=== PATIENT | male | born 1960 | race Caucasian/White ===

== ENCOUNTER 2016-05-26 09:00 | Emergency (ER) ==
[2016-05-26] MEDS ORDERED: NORCO-5 PO ONE (10:45)
--- NOTE | 2016-05-26 10:47 | PROVIDER DOCUMENTATION ---
HPI-Rash/Wound/ReCheck <Kena Ruiz - Last Filed: 05/26/16 10:45> - General Source: patient - History of Present Illness-Dermatology Location: reports: hands (R 2nd digit) Quality: reports: painful Severity: reports: mild Onset/Duration: reports: unsure Timing: reports: still present Context/Associated Symptoms: reports: other (paronychia to R 2nd digit). denies : insect bite/sting, tick bite, spider bite, unknown bite/sting, abscess, laceration, abrasion, bruising/hematoma, incised wound, stab wound, burn, blisters, change in skin texture, edema, fever, flushing, headache, hives, jaundice, lesion, malaise, nasal congestion, numbness, pallor, paresthesia, petechiae, rash, sore throat, swelling/mass/lumps, tingling, tender area Identifiable cause?: No Exposure: reports: unknown cause Locality of Occurance: Home Similar Symptoms Previously?: Yes Recently seen or treated by another doctor?: No <Lia Kirk - Last Filed: 05/26/16 10:55> - General Chief Complaint: Extremity Pain Stated Complaint: FINGER SWOLLEN Time Seen by Provider: 05/26/16 10:40 Allergies/Adverse Reactions: Allergies Allergy/AdvReac Type Severity Reaction Status Date / Time No Known Allergies Allergy Verified 04/29/16 09:42 Home Medications: Home Medication List Medication Instructions Recorded Confirmed Last Taken Type Amlodipine [Norvasc] 10 mg PO DAILY 04/29/16 04/29/16 Unknown History Hydrocodone/Acetaminophen [Lewis 1 each PO Q4-6H PRN PRN #20 tablet 04/29/16 Unknown Rx 10-325 Tablet] Lisinopril 20 mg PO DAILY 04/29/16 04/29/16 Unknown History Methocarbamol [Robaxin-750] 1,500 mg PO Q6-8H PRN PRN #40 04/29/16 Unknown Rx tablet Metoprolol [Lopressor] 50 mg PO DAILY 04/29/16 04/29/16 Unknown History Prednisone 20 mg PO DAILY #12 tablet 04/29/16 Unknown Rx Acetaminophen with Codeine 1 each PO Q4H PRN PRN #7 tablet 05/26/16 Unknown Rx [Tylenol with Codeine #3] Amoxicillin [Amoxil] 500 mg PO BID #20 capsule 05/26/16 Unknown Rx - History of Present Illness-Dermatology Nature of Presenting Problem: Pt is 55 y/o M presents to the ED with R 2nd digit pain. Pt states unsure of onset of pain. Pt states he does bite his nails. Pt denies injury to digit. ( Lia Kirk) Review of Systems - Adult - REVIEW OF SYSTEMS - ADULT Constitutional: reports: no symptoms reported Eyes: reports: no symptoms reported Ears, Nose, Mouth & Throat: reports: no symptoms reported Cardiovascular: reports: no symptoms reported Respiratory: reports: no symptoms reported Gastrointestinal: reports: no symptoms reported Genitourinary: reports: no symptoms reported Musculoskeletal: reports: no symptoms reported Integumentary: reports: other (paronychia to R 2nd digit). denies: hives, rash Neurological: reports: no symptoms reported Psychiatric: reports: no symptoms reported Endocrine: reports: no symptoms reported Hematologic/Lymphatic: reports: no symptoms reported Allergic/Immunologic: reports: no symptoms reported All Other Systems: Reviewed and Negative <Lia Kirk - Last Filed: 05/26/16 10:55> Past History - Adult - PAST MEDICAL HISTORY-ADULT Major Childhood Illnesses: reports: denies history Cardiovascular: reports: HTN Respiratory: reports: denies history Gastrointestinal: reports: denies history Obstetrical/Gynecological: reports: denies history Genitourinary: reports: denies history Musculoskeletal: reports: arthritis, chronic pain, neck/back injury Neurological: reports: denies history Endocrine/Immune: reports: denies history Other Conditions: reports: denies history - PRIOR SURGERIES/PROCEDURES Surgical/Procedure History: reports: orthopedic (extremity) (total hip) - IMMUNIZATION STATUS Childhood Immunizations: See Nurse Assessment Flu Vaccine: See Nurse Assessment - FAMILY HISTORY Family History: reviewed, not pertinent <Kena Ruiz - Last Filed: 05/26/16 10:45> - PAST MEDICAL HISTORY-ADULT Review of Records: reports: Old Records Reviewed, Nursing Assessment Review, Medications Reviewed, Social history reviewed & non-contributory. Major Childhood Illnesses: reports: denies history Cardiovascular: reports: HTN Respiratory: reports: denies history Gastrointestinal: reports: denies history Obstetrical/Gynecological: reports: denies history Genitourinary: reports: denies history Musculoskeletal: reports: denies history Neurological: reports: denies history Endocrine/Immune: reports: denies history Other Conditions: reports: denies history - PRIOR SURGERIES/PROCEDURES Surgical/Procedure History: reports: reviewed, not pertinent, joint replacement - IMMUNIZATION STATUS Childhood Immunizations: See Nurse Assessment Flu Vaccine: See Nurse Assessment - FAMILY HISTORY Family History: reviewed, not pertinent - SOCIAL HISTORY Smoking: cigarettes, less than 1 pack/day Provider spent 3-5 mins advising pt. on dangers of tobacco.: Discussed manners to quit use, and f/u contacts for add'l counseling. Substance Use: denies Living Situation: family <Lia Kirk - Last Filed: 05/26/16 10:55> Physical Exam-General - PHYSICAL EXAM-ADULT Initial Vital Signs Reviewed: Yes - CONSTITUTIONAL General Appearance: appears well, alert, no apparent distress - EYES Eyes: PERRL/EOMI, pink conjunctivae, fundi clear, no AV nicking - HEAD, EARS, NOSE, MOUTH & THROAT HENMT: normocephalic/atraumatic, moist mucous membranes, normal ENT inspection, TMs normal, pharynx normal - NECK Neck: non-tender, full range of motion, supple, normal inspection - RESPIRATORY Respiratory: chest non-tender, lungs clear, normal breath sounds, no pleuratic chest pain, no respiratory distress, no accessory muscle use - CARDIOVASCULAR Cardiovascular: normal peripheral pulses, regular rate, rhythm, no edema, no gallop, no JVD, no murmur - GASTROINTESTINAL (ABDOMEN) Abdominal Exam: normal bowel sounds, non tender, soft, no organomegaly, no pulsatile mass - LYMPHATIC Lymphatic: no adenopathy - MUSCULOSKELETAL Back Exam: normal inspection, no CVA tenderness, no vertebral tenderness Extremity: normal range of motion, normal gait, normal inspection, no pedal edema, no calf tenderness, normal capillary refill, tenderness (R 2nd digit), other (paronychia to R 2nd digit) - SKIN Integumentary: normal color, normal turgor, warm/dry, other (paronychia to R 2nd digit) - NEUROLOGIC Neurologic: grossly normal - PSYCHIATRIC Psych/Mental Status: normal mood/affect, oriented x 3 <Lia Kirk - Last Filed: 05/26/16 10:55> Progress <Kena Ruiz - Last Filed: 05/26/16 10:45> <Lia Kirk - Last Filed: 05/26/16 10:55> - PLAN OF CARE/RESULTS Progress/Plan/Lab Results: Orders Category Date Time Status Hydrocodone/APAP 5 mg/325 mg [Lewis-5] Med 05/26/16 10:45 Discontinued 1 each PO NOW ONE Vital Signs - 24 hr 05/26/16 09:07 Temperature 98.1 F Pulse Rate 66 Respiratory 18 Rate Blood Pressure 117/67 O2 Sat by Pulse 99 Oximetry (Lia Kirk) Departure - Departure Time of Disposition Order: 10:45 Certified Medical Emergency: Emergent <Kena Ruiz - Last Filed: 05/26/16 10:45> - Departure Time of Disposition Order: 10:54 Certified Medical Emergency: Emergent <Lia Kirk - Last Filed: 05/26/16 10:55> - Departure DIAGNOSIS: Paronychia of finger Qualifiers: Laterality: right Qualified Code(s): L03.011 - Cellulitis of right finger Disposition: HOME 01 Condition: Stable Additional Instructions: Return for new or worsening symptoms ED Follow Up Instructions: You have been treated by a care provider in the Emergency Department. These instructions are being provided to you so you can have an understanding of how to care for yourself upon discharge. Upon discharge from the Emergency Department, you are responsible for making arrangements for follow-up care by a physician of your choice. Take all prescribed medications as directed. Return to the Emergency Department immediately for any new or worsening symptoms. You may call the Physician Referral phone number at [phone] to obtain a list of Physicians who are taking new patients. Prescriptions: Amoxicillin [Amoxil] 500 mg PO BID #20 capsule Acetaminophen with Codeine [Tylenol with Codeine #3] 1 each PO Q4H PRN PRN #7 tablet PRN Reason: Pain Referrals: None,PCP [Primary Care Provider] - Attestation - Scribe Verification/Attestation Scribe:: Lia Kirk Acting as Scribe for:: Kena Ruiz Scribe documention review:: This chart was documented by a scribe and accurately reflects the service the provider performed and the decisions made by the provider. <Lia Kirk - Last Filed: 05/26/16 10:55> Physician Attestation
[2016-05-26 11:09] VITALS: BP 123/073
== END 2016-05-26 11:07 | disposition home or self-care (01) ==
LOC: P.ED 09:00
DX: L03.011 Cellulitis of right finger (principal); M79.644 Pain in right finger(s); R22.31 Localized swelling, mass and lump, right upper limb; I10 Essential (primary) hypertension; M19.90 Unspecified osteoarthritis, unspecified site; G89.29 Other chronic pain; F17.210 Nicotine dependence, cigarettes, uncomplicated; Z79.899 Other long term (current) drug therapy; Z71.6 Tobacco abuse counseling
CPT/HCPCS: 99282